=== PATIENT | female | born 1965 | race Caucasian/White ===

== ENCOUNTER → 2016-05-24 | Outpatient (CLI) | payer BC ==
[~2016-05-24] MED LIST: BCPILLS PO; LANS30CA12 PO; LATA0.009; MEDLIST
--- NOTE | 2016-05-24 15:12 | MAMMOGRAPHY REPORT ---
BILATERAL DIGITAL SCREENING MAMMOGRAM TOMOSYNTHESIS WITH CAD: 05/24/2016 CLINICAL HISTORY: Routine screening. Patient has no complaints. TECHNIQUE: Breast tomosynthesis in addition to standard 2D mammography was performed. Current study was also evaluated with a Computer Aided Detection (CAD) system. COMPARISON: Comparison is made to exams dated: 05/26/2015 mammogram, 05/20/2015 mammogram, 06/15/2013 mammogram, 06/15/2013 mammogram, 07/14/2012 mammogram, and 07/14/2012 ultrasound - [facility]. BREAST COMPOSITION: The tissue of both breasts is almost entirely fatty. FINDINGS: There is a possible new 5 mm mass in the 1:00 middle one third of the left breast, for wh ich additional spot compression tomosynthesis views and possibly ultrasound are recommended. There are scattered and grouped stable microcalcifications bilaterally. Stable nodularity in the la teral right breast. No other suspicious mass, architectural distortion or cluster of microcalcificat ions is seen. IMPRESSION: ACR BI-RADS CATEGORY 0: INCOMPLETE EVALUATION: NEED ADDITIONAL IMAGING EVALUATION The possible new 5 mm mass in the left breast needs additional evaluation. The patient will be called to schedule an appointment. Approximately 10% of breast cancers are not detected with mammography. A negative mammographic repor t should not delay biopsy if a clinically suggestive mass is present. Delmis Lozano M.D. ay/:05/24/2016 08:37:22 Straw Hat Plunger Operator: Alice KEENAN)([place]), [facility] letter sent: Addl Imaging 0 BI-RADS Code: ACR BI-RADS Category 0: Incomplete Evaluation: Need Additional Imaging Evaluation
== END | disposition home or self-care (01) ==
LOC: C.MAMM 07:24
PROVIDERS: ATTEND Family Medicine
DX: Z12.31 Encounter for screening mammogram for malignant neoplasm of breast (principal); R92.8 Other abnormal and inconclusive findings on diagnostic imaging of breast

== ENCOUNTER → 2016-07-02 | Outpatient (CLI) | payer BC ==
--- NOTE | 2016-07-02 13:11 | MAMMOGRAPHY REPORT ---
UNILATERAL LEFT DIGITAL DIAGNOSTIC MAMMOGRAM TOMOSYNTHESIS AND TARGETED LEFT ULTRASOUND: 07/02/2016 CLINICAL HISTORY: Callback from screening mammogram for possible left breast mass. TECHNIQUE: Breast tomosynthesis in addition to standard 2D mammography was performed. Left CC and MLO spot compression 2-D and tomosynthesis images were obtained. COMPARISON: Comparison is made to exams dated: 05/24/2016 mammogram, 05/26/2015 mammogram, 05/26/2015 ultrasound, 05/20/2015 mammogram, 06/15/2013 mammogram, and 06/15/2013 mammogram - [facility]. BREAST COMPOSITION: The tissue of the left breast is almost entirely fatty. FINDINGS: The previously described asymmetry seen within the left 1:00 breast effaces to a baseline appearance on the additional views, and has the appearance of normal fibroglandular tissue on the a dditional tomosynthesis images. The region appears similar to multiple prior exams including the 22 12 exam. No discrete mammographic mass or architectural distortion is seen in this region on the ad ditional views. Targeted ultrasound was performed of the left upper outer quadrant in the region of the mammographic asymmetry. Sonographically normal tissue is seen, without evidence of a mass or other suspicious s onographic abnormality. IMPRESSION: ACR BI-RADS CATEGORY 2: BENIGN, TARGETED ULTRASOUND ACR BI-RADS CATEGORY 2: BENIGN The left breast asymmetry effaces on the additional views, without corresponding sonographic abnorma lity evident. The asymmetry is benign and compatible with normal overlapping fibroglandular tissue. There is no mammographic or targeted sonographic evidence of malignancy. A 1 year screening mammog una is recommended. The patient has been verbally notified of the results. Approximately 10% of breast cancers are not detected with mammography. A negative mammographic repor t should not delay biopsy if a clinically suggestive mass is present. Jayna Melendez M.D. /:07/02/2016 08:32:53 Position Description Manager: Jumana Cordova, [facility] letter sent: Normal 1/2 BI-RADS Code: ACR BI-RADS Category 2: Benign Ultrasound BI-RADS: ACR BI-RADS Category 2: Benign
== END | disposition home or self-care (01) ==
LOC: C.MAMM 08:09
PROVIDERS: ATTEND Family Medicine
DX: R92.8 Other abnormal and inconclusive findings on diagnostic imaging of breast (principal); N64.89 Other specified disorders of breast